=== PATIENT | male | born 1990 | race Two or more races ===

== ENCOUNTER 2020-01-26 09:15 | Day surgery (SDC) | payer OTHER ==
[2020-01-26] VITALS (9 sets, daily range): BP systolic 118–147; BP diastolic 62–82
[~2020-01-26] VITALS: Ht 167.6 cm; Wt 66.2 kg
--- NOTE | 2020-01-26 07:16 | Pre-Procedure Note/Attestation ---
Pre-Procedure Note/Attestation Complete Prior to Procedure Planned Procedure: right Procedure Narrative: shoulder arthroscopy, sad Indications for Procedure Pre-Operative Diagnosis: right shoulder internal derangement Attestation I attest that I discussed the nature of the procedure; its benefits; risks and complications; and alternatives (and the risks and benefits of such alternatives ), prior to the procedure, with the patient (or the patient's legal mill representative). I attest that, if there was a reasonable possibility of needing a blood transfusion, the patient (or the patient's legal mill representative) was given the [facility] standardized written summary, pursuant to the [place] Blood Safety Act ([place] Health and Safety Code # 1645, as amended). I attest that I re-evaluated the patient just prior to the surgery and that there has been no change in the patient's H&P, except as documented below: Krzysztof Borjas MD January 26, 2020 07:16
--- NOTE | 2020-01-26 07:16 | Operative Note - PDOC ---
Operative Note Operative Note Pre-op Diagnosis: right shoulder internal derangement Procedure: see op report Post-op Diagnosis: same as pre-op plus Anesthesia: regional Specimen: none Complications: none Condition: stable Estimated Blood Loss: none Implant(s) used?: No Krzysztof Borjas MD January 26, 2020 07:16
[~2020-01-26 09:15] MED LIST: D5 1/2NS 1,000 ML IV SCH; HYDROcodone/Acetamin 5/325 tab ORAL PRN; HYDROmorphone 1mg/ml Carpuject SUBQ PRN; Tylenol #3 tab (300mg/30mg) ORAL PRN; ceFAZolin 1gm IVPB IVPB ONE; celeBREX 200mg Cap **SURGERY PATIENTS ONLY ORAL ONE; oxyCONTIN 20mg tab ORAL ONE
[2020-01-26] MEDS ORDERED: Kenalog-40 1ml Vial ONE (10:26)
[2020-01-26] MEDS ORDERED: Ketorolac 30mg Inj ONE (10:26)
[2020-01-26] MEDS ORDERED: Duramorph PF 5mg/10ml amp ONE (10:27)
[2020-01-26] MEDS ORDERED: Rocuronium Bromide 100mg/10ml Inj IV ONE (10:27)
[2020-01-26] MEDS ORDERED: Bupivacaine 0.25% Inj 30ml INJ ONE (10:27)
[2020-01-26] MEDS ORDERED: oxyCONTIN 20mg tab ORAL ONE (10:54)
[2020-01-26] MEDS ORDERED: celeBREX 200mg Cap **SURGERY PATIENTS ONLY ORAL ONE (10:54)
[2020-01-26] MEDS ORDERED: fentaNYL 100 mcg/2 mL IV ONE (11:58)
[2020-01-26] MEDS ORDERED: Midazolam 2mg/2ml Inj ONE (11:58)
[2020-01-26] MEDS ORDERED: ePHEDrine 50mg/ml Inj ONE (12:00)
[2020-01-26] MEDS ORDERED: LR 1000ml ONE (12:00)
[2020-01-26] MEDS ORDERED: NS Irrig 4000ml IRRIG ONE (12:48)
[2020-01-26] MEDS ORDERED: Ropivacaine 5mg/ml Vial 20ml INJ ONE (12:49)
[2020-01-26] MEDS ORDERED: Lidocaine 1% MPF 10mg/ml 5ml ONE (12:49)
--- NOTE | 2020-01-26 13:06 | Anethesia Preoperative Eval ---
Anesthesia Pre-op PMH/ROS General Date of Evaluation: January 26, 2020 Time of Evaluation: 12:00 Anesthesiologist: tiana ASA Score: ASA 2 Mallampati Score Class I : Soft palate, uvula, fauces, pillars visible Class II: Soft palate, uvula, fauces visible Class III: Soft palate, base of uvula visible Class IV: Only hard plate visible Mallampati Classification: Class II Surgeon: marisol Diagnosis: right shoulder pain Surgical Procedure: Right should Anesthesia History: none Social History: smoking, current smoker Family History: no anesthesia problems Allergies: Coded Allergies: No Known Allergies (Unverified , 01/24/20) Medications: see eMAR Patient NPO?: Yes NPO Date: January 26, 2020 NPO Time: 00:01 Past Medical History Cardiovascular: Denies: HTN, CAD, MS, valve dz, arrhythmia, other Pulmonary: Denies: asthma, COPD, DREW, other Gastrointestinal/Genitourinary: Denies: GERD, CRI, ESRD, other Neurologic/Psychiatric: Denies: dementia, CVA, depression/anxiety, TIA, other Endocrine: Denies: DM, hypothyroidism, steroids, other HEENT: Denies: cataract (L), cataract (R), glaucoma, [place] (L), [place] (R), other Hematology/Immune: Denies: anemia, DVT, bleeding disorder, other Musculoskeletal/Integumentary: Denies: OA, RA, DJD, DDD, edema, other PSxH Narrative: none Anesthesia Pre-op Phys. Exam Physician Exam Last Vital Signs Date Time Temp Pulse Resp B/P (MAP) Pulse Ox O2 Delivery O2 Flow Rate FiO2 01/26/20 11:10 Room Air 01/26/20 10:44 98.0 67 18 120/74 98 Constitutional: NAD Neurologic: CN 2-12 intact Cardiovascular: RRR Respiratory: CTA Gastrointestinal: S/NT/ND Airway Exam Mallampati Classification 2 Mallampati Score: Class II MO: full ROM: full Dentures: no upper, no lower Anesthesia Pre-op A/P Studies Pre-op Studies: EKG - SR Risk Assessment & Plan Plan: general with peripheral block Status Change Before Surgery: No Pre-Antibiotics Drug: ancef Given Within 1 Hr of Incision: Yes Time Given: 12:10 Ines Knowles CRNA January 26, 2020 13:06
[2020-01-26] MEDS ORDERED: Hydromorphone 0.5mg/0.5ml inj IVP PRN (13:15)
[2020-01-26] MEDS ORDERED: Glycopyrrolate 0.2mg/ml 1ml Vial ONE (13:15)
[2020-01-26] MEDS ORDERED: Neostigmine 1mg/ml 10ml Inj ONE (13:15)
[2020-01-26] MEDS ORDERED: fentaNYL 100 mcg/2 mL IV PRN (13:15)
--- NOTE | 2020-01-26 13:42 | Immediate Post-Op Evaluation ---
Immediate Post-Op Evalulation Immediate Post-Op Evalulation Procedure: right shoulder arthroscopy Date of Evaluation: January 26, 2020 Time of Evaluation: 13:41 IV Fluids: 500 Blood Pressure Systolic: 144 Blood Pressure Diastolic: 65 Pulse Rate: 80 Respiratory Rate: 14 O2 Sat by Pulse Oximetry: 97 Temperature (Fahrenheit): 97.4 Nausea: No Vomiting: No Complications none Patient Status: awake, reacts, patent Hydration Status: adequate Drug: ANCEF Given Within 1 Hr of Incision: Yes Time Given: 13:37 Ines Knowles CRNA January 26, 2020 13:42
--- NOTE | 2020-01-26 14:57 | 48 Hour Post Anesthesia Eval ---
Post Anesthesia Evaluation Procedure: right shoulder arthroscopy Date of Evaluation: January 26, 2020 Time of Evaluation: 14:57 Blood Pressure Systolic: 118 0: 62 Pulse Rate: 60 Respiratory Rate: 14 O2 Sat by Pulse Oximetry: 98 Airway: patent Nausea: No Vomiting: No Hydration Status: adequate Mental Status/LOC: patient returned to baseline Post-Anesthesia Complications: none Follow-up care needed: N/A Ines Knowles CRNA January 26, 2020 14:57
--- NOTE | 2020-01-26 18:45 | Operative Note - Dictated ---
DATE OF OPERATION: 01/26/2020 PREOPERATIVE DIAGNOSES: 1. Right shoulder internal derangement. 2. Impingement syndrome/bursitis. POSTOPERATIVE DIAGNOSES: 1. Right shoulder impingement syndrome. 2. Right shoulder bursal sided rotator cuff tear. PROCEDURES: 1. Right shoulder diagnostic arthroscopy. 2. Right shoulder subacromial decompression bursectomy. SURGEON: Krzysztof Borjas MD. ANESTHESIA: Interscalene with general. INDICATION FOR PROCEDURE: Patient is a pleasant gentleman, who has had progressive right shoulder pain. He had difficulty with overhead activities. He had significant pain despite conservative treatment. Elected to undergo right shoulder diagnostic arthroscopy and possible subacromial decompression bursectomy. Risks, limitations, expectations, and complications of the procedure were discussed in detail. All questions addressed. DESCRIPTION OF PROCEDURE: After informed consent was obtained, patient was brought to the operating room. Patient was placed under interscalene general anesthesia. Right shoulder was prepped and draped in a sterile manner. Time-out was performed. Inferolateral stab incision was then made. Trocar introduced in the glenohumeral joint. Systematic tour of the shoulder was performed. No chondral damage. The anterior labrum was intact. The subscapularis was intact. The superior labrum was intact along with the biceps tendon. There is no significant pathology in the articular side of the rotator cuff. At this point, the camera was placed in subacromial space. There was very tight significant hypertrophic bursal tissue making portal placement somewhat challenging. Once interval was identified and created, further bursectomy was performed identifying the undersurface of the anterior lateral acromion. Acromioplasty was started from lateral to medial and completed from posterior to anterior. Once that was done, the bursal tissue was further debrided in the lateral margin. This did show an area where there was a partial bursal sided rotator cuff tear. There was not full thickness. At this point, the camera was removed. Portal sites were closed using 3-0 Monocryl sutures. Steri-Strips and a sterile dressing were applied. ESTIMATED BLOOD LOSS: None. COMPLICATIONS: None. SPECIMENS: None. IMPLANTS: None. Krzysztof Borjas M.D. DR: [email or web address] JOB#: [id number] CC:
== END 2020-01-26 15:00 | disposition home or self-care (01) ==
LOC: SUR 09:15
DX: M75.41 Impingement syndrome of right shoulder (principal); M71.9 Bursopathy, unspecified; M75.111 Incomplete rotator cuff tear or rupture of right shoulder, not specified as traumatic; F17.200 Nicotine dependence, unspecified, uncomplicated
CPT/HCPCS: 29822; 94003; J0690; J1885; J2250; J2405; J2704; J2710; J2795; J3010; J3301; J3490; J7120; 94150